=== PATIENT | male | born 1955 | race Caucasian/White ===

== ENCOUNTER 2016-08-09 16:25 | Emergency (ER) | payer OTHER ==
[~2016-08-09] VITALS: Ht 170.2 cm; Wt 65.0 kg
[2016-08-09 16:41] VITALS: Ht 170.2 cm; Wt 65.0 kg
[2016-08-09] MEDS ORDERED: SOD CHLORIDE 0.9% 1,000 ML IV STA (17:04)
[2016-08-09 17:27] LABS: ADD SCAN DIFF NO
[2016-08-09 17:31] LABS: BASOPHIL # 0.1 10^3/ul (0.0-0.1); EOSINOPHILS # 0.1 10^3/ul (0.0-0.5); EOSINOPHILS % 1.7 % (0.0-7.0); HEMATOCRIT 42.1 % (42.0-52.0); HEMOGLOBIN 13.9 g/dl (14.0-18.0); LYMPHOCYTES # 1.1 10^3/ul (0.8-2.9); LYMPHOCYTES % 32.3 % (15.0-51.0); MEAN CORPUSCULAR HEMOGLOBIN 31.4 pg (29.0-33.0); MEAN CORPUSCULAR VOLUME 95.2 fl (82.0-101.0); MEAN PLATELET VOLUME 9.8 fl (7.4-10.4); MONOCYTE # 0.4 10^3/ul (0.3-0.9); MONOCYTES % 10.4 % (0.0-11.0); NEUTROPHIL # 1.8 10^3/ul (1.6-7.5); PLATELET COUNT 161 10^3/UL (140-415); RED BLOOD COUNT 4.42 10^6/ul (4.70-6.10); RED CELL DISTRIBUTION WIDTH 14.9 % (11.5-14.5); WHITE BLOOD COUNT 3.5 10^3/ul (4.8-10.8)
[2016-08-09 17:46] LABS: ALBUMIN 3.5 g/dl (3.3-4.9); CHLORIDE 97 mmol/L (97-110)
[2016-08-09 17:47] LABS: POTASSIUM 3.9 mmol/L (3.5-5.1); SODIUM 134 mmol/L (135-144)
[2016-08-09 17:49] LABS: ALANINE AMINOTRANSFERASE 14 IU/L (13-69); ALBUMIN/GLOBULIN RATIO 1.02; ALKALINE PHOSPHATASE 117 IU/L (42-121); ANION GAP 20 (8-16); ASPARTATE AMINO TRANSFERASE 34 IU/L (15-46); BILIRUBIN,INDIRECT 0.7 mg/dl (0-1.1); BILIRUBIN,TOTAL 0.7 mg/dl (0.2-1.3); BLOOD UREA NITROGEN 9 mg/dl (7-20); CALCIUM 8.7 mg/dl (8.4-10.2); CARBON DIOXIDE 21 mmol/L (21-31); CREATININE 0.66 mg/dl (0.61-1.24); GLUCOSE 77 mg/dl (70-220); TOTAL PROTEIN 6.9 g/dl (6.1-8.1)
[2016-08-09 17:50] LABS: ACETAMINOPHEN < 10.0 ug/ml (10.0-30.0)
[2016-08-09 18:35] LABS: SALICYLATE < 1.0 mg/dl (5.0-30.0)
--- NOTE | 2016-08-09 18:56 | RADRPT ---
PROCEDURE: CT brain without contrast CLINICAL INDICATION: Syncope. History of melanoma on nose TECHNIQUE: A CT of the brain was performed utilizing axial sections from the skull base through th e vertex without contrast. Sagittal and coronal images were also reformatted. The exam CTDIvol = 38. 91 mGy and DLP = 634.23 mGy-cm. COMPARISON: None available FINDINGS: No acute intracranial hemorrhage is identified. There is no mass effect or midline shift. No extra -axial fluid collection is seen. The ventricles and sulci are larger in size and configuration for the patient's provided age of 61 years consistent with advanced generalized atrophy. Low attenuatio n in the subcortical and periventricular white matter is nonspecific but likely reflects the sequela of chronic small vessel ischemia. Aviles-white differentiation is preserved with no findings to sugg est an acute ischemic infarct. The fourth ventricle is midline and there is no density alteration within the nils or cerebellum. Postoperative changes of the left lateral orbital wall with a metallic fixation plate are noted. Th e included maxillary sinuses appear opacified, the remaining paranasal sinuses and mastoid air cells are clear. Severe atherosclerotic calcification of the cavernous internal carotid arteries is pres ent. The mastoid air cells and visualized paranasal sinuses are clear. RPTAT:HJJR IMPRESSION: 1.Advanced atrophy for the patient's provided age and chronic small vessel ischemic cerebral white m atter disease without evidence of acute intracranial abnormality or mass effect. 2. Ventricular greater than cerebral sulcal prominence is believed to most likely reflect advanced c entral dominant atrophy for the patient's age however, in the proper clinical setting, normal pressu re hydrocephalous would be a consideration. Correlation with ataxia and urinary incontinence is rec ommended. 3. Postoperative changes of the left lateral bony orbital wall. 4. Atherosclerotic calcification of the internal carotid arteries. Physician Jesenia Date Time Electronically viewed and signed by Physician Jesenia on 08/09/2016 18:55 /
[2016-08-09 20:12] VITALS: BP 120/75; PULSE 85; RESP 18; TEMP 98.7
--- NOTE | 2016-08-09 20:17 | ERD ---
ER Documentation Chief Complaint Date/Time DATE: 08/09/16 TIME: 20:15 Chief Complaint WEAKNESS X 1.5 DAYS HPI Patient is a 61-year-old male with melanoma history who presents with passing out. He was brought in by ambulance. A bystander called 911 because he was intoxicated behind a school. The patient denies chest pain, shortness of breath , or fevers. He admits to diffuse weakness. He usually walks with a walker. ROS All systems reviewed and are negative except as per history of present illness. Medications Home Meds No Active Prescriptions or Reported Meds Allergies Allergies: Coded Allergies: Penicillins (Verified Allergy, Severe, 08/09/16) REENTRY FROM [facility] IN UNCODED ALLERGY FIELD REACTION NOT SPECIFIED PMhx/Soc History of Surgery: Yes (MELANOMA TO NOSE) Anesthesia Reaction: No Hx Neurological Disorder: No Hx Respiratory Disorders: No Hx Cardiac Disorders: No Hx Psychiatric Problems: No Hx Miscellaneous Medical Probl: No Hx Alcohol Use: Yes Hx Substance Use: No Hx Tobacco Use: No Smoking Status: Unknown if ever smoked FmHx Family History: No diabetes Physical Exam Vitals Vital Signs Date Time Temp Pulse Resp B/P Pulse Ox O2 Delivery O2 Flow Rate FiO2 08/09/16 20:12 98.7 85 18 120/75 100 Room Air 08/09/16 18:25 98.7 88 18 128/77 98 Room Air 08/09/16 16:41 98.7 98 18 134/81 98 Physical Exam Const: No acute distress Head: Atraumatic Eyes: Normal Conjunctiva ENT: 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 Resp: Clear to auscultation bilaterally Cardio: Regular rate and rhythm, no murmurs Abd: Soft, non tender, non distended. Normal bowel sounds Skin: No petechiae or rashes Back: No midline or flank tenderness Ext: No cyanosis, or edema Neur: Awake and alert, the patient has lower extremity weakness bilaterally which is chronic Result Diagram: 08/09/16 1715 08/09/16 1715 Results 24 hrs Laboratory Tests Test 08/09/16 17:15 Acetaminophen Level < 10.0ug/ml Alanine Aminotransferase (ALT/SGPT) 14IU/L Albumin 3.5g/dl Albumin/Globulin Ratio 1.02 Alkaline Phosphatase 117IU/L Anion Gap 20 Aspartate Amino Transf (AST/SGOT) 34IU/L Basophils # 0.110^3/ul Basophils % 2.0% Blood Urea Nitrogen 9mg/dl Calcium Level 8.7mg/dl Carbon Dioxide Level 21mmol/L Chloride Level 97mmol/L Creatinine 0.66mg/dl Direct Bilirubin 0.00mg/dl Eosinophils # 0.110^3/ul Eosinophils % 1.7% Ethyl Alcohol Level 349.0mg/dl Globulin 3.40g/dl Glucose Level 77mg/dl Hematocrit 42.1% Hemoglobin 13.9g/dl Indirect Bilirubin 0.7mg/dl Lymphocytes # 1.110^3/ul Lymphocytes % 32.3% Mean Corpuscular Hemoglobin 31.4pg Mean Corpuscular Hemoglobin Concent 33.0g/dl Mean Corpuscular Volume 95.2fl Mean Platelet Volume 9.8fl Monocytes # 0.410^3/ul Monocytes % 10.4% Neutrophils # 1.810^3/ul Neutrophils % 53.0% Nucleated Red Blood Cells # 0.010^3/ul Nucleated Red Blood Cells % 0.0/100WBC Platelet Count 76971^3/UL Potassium Level 3.9mmol/L Red Blood Count 4.4210^6/ul Red Cell Distribution Width 14.9% Salicylates Level < 1.0mg/dl Sodium Level 134mmol/L Total Bilirubin 0.7mg/dl Total Protein 6.9g/dl White Blood Count 3.510^3/ul Current Medications Medications (Trade) Dose Ordered Sig/Dorina Route PRN Reason Start Time Stop Time Status Last Admin Dose Admin Sodium Chloride (NS) 1,000 ml @ 1,000 mls/hr Q1H STAT IV 08/09/16 17:04 08/09/16 18:03 DC 08/09/16 17:34 Procedures/MDM PROCEDURE: CT brain without contrast CLINICAL INDICATION: Syncope. History of melanoma on nose TECHNIQUE: A CT of the brain was performed utilizing axial sections from the skull base through the vertex without contrast. Sagittal and coronal images were also reformatted. The exam CTDIvol = 38.91 mGy and DLP = 634.23 mGy-cm. COMPARISON: None available FINDINGS: No acute intracranial hemorrhage is identified. There is no mass effect or midline shift. No extra-axial fluid collection is seen. The ventricles and sulci are larger in size and configuration for the patient's provided age of 61 years consistent with advanced generalized atrophy. Low attenuation in the subcortical and periventricular white matter is nonspecific but likely reflects the sequela of chronic small vessel ischemia. Aviles-white differentiation is preserved with no findings to suggest an acute ischemic infarct. The fourth ventricle is midline and there is no density alteration within the nils or cerebellum. Postoperative changes of the left lateral orbital wall with a metallic fixation plate are noted. The included maxillary sinuses appear opacified, the remaining paranasal sinuses and mastoid air cells are clear. Severe atherosclerotic calcification of the cavernous internal carotid arteries is present. The mastoid air cells and visualized paranasal sinuses are clear. RPTAT:HJJR IMPRESSION: 1.Advanced atrophy for the patient's provided age and chronic small vessel ischemic cerebral white matter disease without evidence of acute intracranial abnormality or mass effect. 2. Ventricular greater than cerebral sulcal prominence is believed to most likely reflect advanced central dominant atrophy for the patient's age however, in the proper clinical setting, normal pressure hydrocephalous would be a consideration. Correlation with ataxia and urinary incontinence is recommended. 3. Postoperative changes of the left lateral bony orbital wall. 4. Atherosclerotic calcification of the internal carotid arteries. Physician Jesenia Date Time Electronically viewed and signed by Physician Jesenia on 08/09/2016 18:55 Patient is a 61-year-old male with melanoma who presents with syncope and alcohol intoxication. His alcohol was found to be 349 showing significant alcohol intoxication. CT brain shows some chronic changes. He has had lower externally weakness for a long time and uses a walker normally. I told him to not drink alcohol to excess. At this point I do not believe the patient requires admission to the hospital and I believe outpatient management is appropriate. I doubt significant arrhythmia such as ventricular fibrillation or ventricular tachycardia. The patient can return for any worsening symptoms. Electrolytes were basically normal. He has mild anemia with a hemoglobin of 13.9 but does not require transfusion. Departure Diagnosis: Primary Impression: Alcohol intoxication Complication of substance-induced condition: uncomplicated Qualified Code: F10.120 - Alcohol intoxication, uncomplicated Additional Impressions: Acute weakness Syncope Syncope type: unspecified Qualified Code: R55 - Syncope, unspecified syncope type Condition: Fair Patient Instructions: Alcohol Intoxication, Syncope, Unk Cause Referrals: [facility] YOU HAVE RECEIVED A MEDICAL SCREENING EXAM AND THE RESULTS INDICATE THAT YOU DO NOT HAVE A CONDITION THAT REQUIRES URGENT TREATMENT IN THE EMERGENCY DEPARTMENT. FURTHER EVALUATION AND TREATMENT OF YOUR CONDITION CAN WAIT UNTIL YOU ARE SEEN IN YOUR DOCTORS OFFICE WITHIN THE NEXT 1-2 DAYS. IT IS YOUR RESPONSIBILITY TO MAKE AN APPOINTMENT FOR FOLOW-UP CARE. IF YOU HAVE A PRIMARY DOCTOR --you should call your primary doctor and schedule an appointment IF YOU DO NOT HAVE A PRIMARY DOCTOR YOU CAN CALL OUR PHYSICIAN REFERRAL HOTLINE AT IF YOU CAN NOT AFFORD TO SEE A PHYSICIAN YOU CAN CHOSE FROM THE FOLLOWING [facility] [address] [facility] [address] [facility] [address] [facility] [address] [facility] [address] [facility] [facility] [address] Additional Instructions: Call your primary care doctor TOMORROW for an appointment during the next 1-2 days.See the doctor sooner or return here if your condition worsens before your appointment time. SOURAV CRUZ MD Aug 09, 2016 20:17
[2016-08-09 20:34] LABS: ADD UMIC NO; URINE BILIRUBIN (Dip) NEGATIVE (NEGATIVE); URINE BLOOD (Dip) NEGATIVE (NEGATIVE); URINE COLOR LT. YELLOW (YELLOW); URINE GLUCOSE (Dip) NEGATIVE (NEGATIVE); URINE KETONES (Dip) NEGATIVE (NEGATIVE); URINE LEUKOCYTE ESTERASE (Dip) NEGATIVE (NEGATIVE); URINE NITRITE (Dip) NEGATIVE (NEGATIVE); URINE TOTAL PROTEIN (Dip) NEGATIVE (NEGATIVE); URINE UROBILINOGEN (Dip) 0.2 E.U./dL (0.1-1.0)
[2016-08-09 20:49] LABS: BARBITURATES Negative (NEGATIVE); BENZODIAZEPINES Negative (NEGATIVE); CANNABINOIDS Negative (NEGATIVE); COCAINE Negative (NEGATIVE); OPIATES Negative (NEGATIVE)
== END 2016-08-09 20:26 | disposition home or self-care (01) ==
LOC: E/R 16:25
DX: F10.120 Alcohol abuse with intoxication, uncomplicated (principal); R55 Syncope and collapse
CPT/HCPCS: 36415; 70450; 80053; 80306; 80307; 81003; 85025; J7030; Z7502